=== PATIENT | male | born 1985 | race Caucasian/White ===

== ENCOUNTER 2016-07-21 03:04 | Emergency (ER) | payer OTHER ==
[2016-07-21 03:10] VITALS: RESP 18
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
[2016-07-21 03:55] VITALS: BP 160/95; PULSE 89; TEMP 97.8
== END 2016-07-21 03:55 | disposition home or self-care (01) ==
LOC: EC 03:04
DX: S01.81XA Laceration without foreign body of other part of head, initial encounter (principal); X99.0XXA Assault by sharp glass, initial encounter; I10 Essential (primary) hypertension; F17.200 Nicotine dependence, unspecified, uncomplicated
CPT/HCPCS: 12002; 99282

== ENCOUNTER 2017-09-07 00:08 | Emergency (ER) | payer OTHER ==
[2017-09-07] MEDS ORDERED: IBUPROFEN 800 MG TAB PO STA (00:15)
[2017-09-07] MEDS ORDERED: ACETAMINOPHEN TAB 500 MG TAB PO STA (00:15)
[2017-09-07] MEDS ORDERED: SODIUM CHLORIDE 0.9% 1,000 ML IV STA (00:56)
[2017-09-07] MEDS ORDERED: IBUPROFEN 600 MG TAB PO STA (00:56)
[2017-09-07 01:26] LABS: Basophils # (A) 0.1 k/uL (0-0.2); Basophils % (A) 1 %; Eosinophils # (A) 0.1 k/uL (0-0.7); Eosinophils % (A) 1 %; HCT 41.6 % (39.0-53.0); HGB 14.7 gm/dL (13.0-17.5); Lymphocytes # (A) 0.9 k/uL (1.0-4.8); Lymphocytes % (A) 7 %; MCH 30.2 pg (25.0-35.0); MCHC 35.3 g/dL (31.0-37.0); MCV 85.5 fL (80.0-100.0); Mean Platelet Volume 8.2; Monocytes # (A) 0.9 k/uL (0-1.0); Monocytes % (A) 7 %; Neutrophils % (A) 84 %; Platelet Count 206 k/uL (150-450); RBC 4.87 m/uL (4.30-5.90); RDW 12.4 % (11.5-15.5); WBC 13.2 k/uL (3.8-10.6)
[2017-09-07 01:30] LABS: Appearance,Urine Clear (Clear); Bilirubin,Urine Negative (Negative); Blood,Urine Negative (Negative); Color,Urine Colorless; Glucose,Urine (UA) Negative (Negative); Ketones,Urine Negative (Negative); Leukocyte Esterase,Urine Negative (Negative); Nitrite,Urine Negative (Negative); Protein,Urine Negative (Negative); Specific Gravity,Urine 1.003 (1.001-1.035); Urobilinogen,Urine <2.0 mg/dL (<2.0)
[2017-09-07 01:34] LABS: ALT 25 U/L (21-72); AST 26 U/L (17-59); Albumin 4.4 g/dL (3.5-5.0); Alkaline Phosphatase 69 U/L (38-126); Anion Gap 11 mmol/L; Blood Urea Nitrogen 12 mg/dL (9-20); Calcium 9.9 mg/dL (8.4-10.2); Carbon Dioxide 24 mmol/L (22-30); Chloride 105 mmol/L (98-107); Glucose 107 mg/dL (74-99); Potassium 3.6 mmol/L (3.5-5.1); Sodium 140 mmol/L (137-145); Total Bilirubin 0.5 mg/dL (0.2-1.3)
--- NOTE | 2017-09-07 01:34 | XR ---
EXAMINATION TYPE: XR chest 2V DATE OF EXAM: 09/07/2017 COMPARISON: NONE HISTORY: Fever TECHNIQUE: Frontal and lateral views of the chest are obtained. FINDINGS: Heart and mediastinum are normal. Lungs are clear. Diaphragm is normal. Bony thorax appear s normal. IMPRESSION: Normal chest
[2017-09-07 01:47] LABS: Amphetamine Screen,Urine Not Detected (NotDetected); Barbiturate Screen,Urine Not Detected (NotDetected); Benzodiazepines Screen,Urine Not Detected (NotDetected); Cocaine Screen,Urine Not Detected (NotDetected); Methadone Screen, Urine Not Detected (NotDetected); Opiate Screen,Urine Not Detected (NotDetected); Oxycodone Screen, Urine Not Detected (NotDetected); Phencyclidine Screen,Urine Not Detected (NotDetected); Tricyclic Antidepressant,Urine Not Detected (NotDetected); Urn Cannabinoid Scrn Not Detected (NotDetected)
[2017-09-07] MEDS ORDERED: SODIUM CHLORIDE 0.9% 1,000 ML IV SCH (02:00)
--- NOTE | 2017-09-07 02:13 | ED ---
Fever HPI - General Chief Complaint: Fever Stated Complaint: Muscle aches Time Seen by Provider: 09/07/17 00:15 Source: patient, EMS, RN notes reviewed, old records reviewed Mode of arrival: EMS Limitations: no limitations - History of Present Illness Initial Comments: This patient is a 32 year old male presents via EMS for body aches, fever, and fatigue. REports he was with his friend and walking to the Liquor store when he felt weak and that his legs would not carry him anymore. He states that from his head to his toes, he feels like someone is squeezing his muscles. Patient reports that he did not know he had a fever. He has no other complaints such as cough, sore throat, congestion, abdominal pain, nausea, vomiting or changes in bowel and bladder habits. PAtient relates that he has no history of sick contacts. Denies significant PMH. - Related Data Previous Rx's Medication Instructions Recorded Ibuprofen [Motrin] 800 mg PO Q6HR PRN #20 tab 07/21/16 Acetaminophen Tab [Tylenol Tab] 650 mg PO Q6H #20 tablet 09/07/17 Ibuprofen [Motrin] 600 mg PO Q8HR PRN #20 tab 09/07/17 Allergies Allergy/AdvReac Type Severity Reaction Status Date / Time No Known Allergies Allergy Verified 09/07/17 00:14 Review of Systems ROS Statement: Those systems with pertinent positive or pertinent negative responses have been documented in the HPI. ROS Other: All systems not noted in ROS Statement are negative. Past Medical History Past Medical History: Hyperlipidemia, Hypertension Additional Past Medical History / Comment(s): irregular heartbeat, DDD History of Any Multi-Drug Resistant Organisms: None Reported Past Surgical History: No Surgical Hx Reported Past Psychological History: No Psychological Hx Reported Smoking Status: Current every day smoker Past Alcohol Use History: None Reported Past Drug Use History: None Reported General Exam - General Exam Comments Initial Comments: This is a 32 year old alert and oriented male, no distress. Limitations: no limitations General appearance: alert, in no apparent distress Head exam: Present: atraumatic, normocephalic, normal inspection Eye exam: Present: normal appearance, PERRL, EOMI. Absent: scleral icterus, conjunctival injection, periorbital swelling ENT exam: Present: normal exam, mucous membranes moist Neck exam: Present: normal inspection. Absent: tenderness, meningismus, lymphadenopathy Respiratory exam: Present: normal lung sounds bilaterally. Absent: respiratory distress, wheezes, rales, rhonchi, stridor GI/Abdominal exam: Present: soft, normal bowel sounds. Absent: distended, tenderness, guarding, rebound, rigid Extremities exam: Present: normal inspection, full ROM, normal capillary refill. Absent: tenderness, pedal edema, joint swelling, calf tenderness Back exam: Present: normal inspection Neurological exam: Present: alert, oriented X3, CN II-XII intact Psychiatric exam: Present: normal affect, normal mood Course Vital Signs 09/07/17 09/07/17 09/07/17 00:10 02:25 02:36 Temperature 100.8 F H 99.5 F Pulse Rate 98 85 Respiratory 18 16 Rate Blood Pressure 161/94 146/87 O2 Sat by Pulse 96 97 Oximetry Medical Decision Making - Medical Decision Making Patient is a 32 year old male with fever and muscle aches for a few hours. He arrived via EMS. Patient has a fever of 100.8 given motrin and tylenol. Patient has a negative flu sceen. Patient then received fluids and labs obtained. Leukocytosis noted. No other changes. Normal CMP and UA. Patient CXR was reviewed and normal. Patient reports he feels better after fever has came down and he has been hydrated. Patient advised likely viral illness, and to follow up or return if there are any new signs or symptoms. All questions answered and return parameters discussed. - Lab Data Result diagrams: 09/07/17 01:08 09/07/17 01:08 Lab Results 09/07/17 09/07/17 09/07/17 Range/Units 00:17 01:08 01:08 WBC 13.2 H (3.8-10.6) k/uL RBC 4.87 (4.30-5.90) m/uL Hgb 14.7 (13.0-17.5) gm/dL Hct 41.6 (39.0-53.0) % MCV 85.5 (80.0-100.0) fL MCH 30.2 (25.0-35.0) pg MCHC 35.3 (31.0-37.0) g/dL RDW 12.4 (11.5-15.5) % Plt Count 206 (150-450) k/uL Neutrophils % 84 % Lymphocytes % 7 % Monocytes % 7 % Eosinophils % 1 % Basophils % 1 % Neutrophils # 11.0 H (1.3-7.7) k/uL Lymphocytes # 0.9 L (1.0-4.8) k/uL Monocytes # 0.9 (0-1.0) k/uL Eosinophils # 0.1 (0-0.7) k/uL Basophils # 0.1 (0-0.2) k/uL Sodium 140 (137-145) mmol/L Potassium 3.6 (3.5-5.1) mmol/L Chloride 105 (98-107) mmol/L Carbon Dioxide 24 (22-30) mmol/L Anion Gap 11 mmol/L BUN 12 (9-20) mg/dL Creatinine 1.00 (0.66-1.25) mg/dL Est GFR (CKD-EPI)AfAm >90 (>60 ml/min/1.73 sqM) Est GFR (CKD-EPI)NonAf >90 (>60 ml/min/1.73 sqM) Glucose 107 H (74-99) mg/dL Plasma Lactic Acid [place] (0.7-2.0) mmol/L Calcium 9.9 (8.4-10.2) mg/dL Total Bilirubin 0.5 (0.2-1.3) mg/dL AST 26 (17-59) U/L ALT 25 (21-72) U/L Alkaline Phosphatase 69 (38-126) U/L Total Protein 7.0 (6.3-8.2) g/dL Albumin 4.4 (3.5-5.0) g/dL Urine Color Urine Appearance (Clear) Urine pH (5.0-8.0) Ur Specific [place] (1.001-1.035) Urine Protein (Negative) Urine Glucose (UA) (Negative) Urine Ketones (Negative) Urine Blood (Negative) Urine Nitrite (Negative) Urine Bilirubin (Negative) Urine Urobilinogen (<2.0) mg/dL Ur Leukocyte Esterase (Negative) Urine Opiates Screen (NotDetected) Ur Oxycodone Screen (NotDetected) Urine Methadone Screen (NotDetected) Ur Propoxyphene Screen (NotDetected) Ur Barbiturates Screen (NotDetected) U Tricyclic Antidepress (NotDetected) Ur Phencyclidine Scrn (NotDetected) Ur Amphetamines Screen (NotDetected) U Methamphetamines Scrn (NotDetected) U Benzodiazepines Scrn (NotDetected) Urine Cocaine Screen (NotDetected) U Marijuana (THC) Screen (NotDetected) Heterophile Antibody (Negative) Influenza Type A RNA Not Detected (Not Detectd) Influenza Type B (PCR) Not Detected (Not Detectd) 09/07/17 09/07/17 09/07/17 Range/Units 01:08 01:08 01:08 WBC (3.8-10.6) k/uL RBC (4.30-5.90) m/uL Hgb (13.0-17.5) gm/dL Hct (39.0-53.0) % MCV (80.0-100.0) fL MCH (25.0-35.0) pg MCHC (31.0-37.0) g/dL RDW (11.5-15.5) % Plt Count (150-450) k/uL Neutrophils % % Lymphocytes % % Monocytes % % Eosinophils % % Basophils % % Neutrophils # (1.3-7.7) k/uL Lymphocytes # (1.0-4.8) k/uL Monocytes # (0-1.0) k/uL Eosinophils # (0-0.7) k/uL Basophils # (0-0.2) k/uL Sodium (137-145) mmol/L Potassium (3.5-5.1) mmol/L Chloride (98-107) mmol/L Carbon Dioxide (22-30) mmol/L Anion Gap mmol/L BUN (9-20) mg/dL Creatinine (0.66-1.25) mg/dL Est GFR (CKD-EPI)AfAm (>60 ml/min/1.73 sqM) Est GFR (CKD-EPI)NonAf (>60 ml/min/1.73 sqM) Glucose (74-99) mg/dL Plasma Lactic Acid [place] 0.6 L (0.7-2.0) mmol/L Calcium (8.4-10.2) mg/dL Total Bilirubin (0.2-1.3) mg/dL AST (17-59) U/L ALT (21-72) U/L Alkaline Phosphatase (38-126) U/L Total Protein (6.3-8.2) g/dL Albumin (3.5-5.0) g/dL Urine Color Colorless Urine Appearance Clear (Clear) Urine pH 7.0 (5.0-8.0) Ur Specific [place] 1.003 (1.001-1.035) Urine Protein Negative (Negative) Urine Glucose (UA) Negative (Negative) Urine Ketones Negative (Negative) Urine Blood Negative (Negative) Urine Nitrite Negative (Negative) Urine Bilirubin Negative (Negative) Urine Urobilinogen <2.0 (<2.0) mg/dL Ur Leukocyte Esterase Negative (Negative) Urine Opiates Screen (NotDetected) Ur Oxycodone Screen (NotDetected) Urine Methadone Screen (NotDetected) Ur Propoxyphene Screen (NotDetected) Ur Barbiturates Screen (NotDetected) U Tricyclic Antidepress (NotDetected) Ur Phencyclidine Scrn (NotDetected) Ur Amphetamines Screen (NotDetected) U Methamphetamines Scrn (NotDetected) U Benzodiazepines Scrn (NotDetected) Urine Cocaine Screen (NotDetected) U Marijuana (THC) Screen (NotDetected) Heterophile Antibody Negative (Negative) Influenza Type A RNA (Not Detectd) Influenza Type B (PCR) (Not Detectd) 09/07/17 Range/Units 01:08 WBC (3.8-10.6) k/uL RBC (4.30-5.90) m/uL Hgb (13.0-17.5) gm/dL Hct (39.0-53.0) % MCV (80.0-100.0) fL MCH (25.0-35.0) pg MCHC (31.0-37.0) g/dL RDW (11.5-15.5) % Plt Count (150-450) k/uL Neutrophils % % Lymphocytes % % Monocytes % % Eosinophils % % Basophils % % Neutrophils # (1.3-7.7) k/uL Lymphocytes # (1.0-4.8) k/uL Monocytes # (0-1.0) k/uL Eosinophils # (0-0.7) k/uL Basophils # (0-0.2) k/uL Sodium (137-145) mmol/L Potassium (3.5-5.1) mmol/L Chloride (98-107) mmol/L Carbon Dioxide (22-30) mmol/L Anion Gap mmol/L BUN (9-20) mg/dL Creatinine (0.66-1.25) mg/dL Est GFR (CKD-EPI)AfAm (>60 ml/min/1.73 sqM) Est GFR (CKD-EPI)NonAf (>60 ml/min/1.73 sqM) Glucose (74-99) mg/dL Plasma Lactic Acid [place] (0.7-2.0) mmol/L Calcium (8.4-10.2) mg/dL Total Bilirubin (0.2-1.3) mg/dL AST (17-59) U/L ALT (21-72) U/L Alkaline Phosphatase (38-126) U/L Total Protein (6.3-8.2) g/dL Albumin (3.5-5.0) g/dL Urine Color Urine Appearance (Clear) Urine pH (5.0-8.0) Ur Specific [place] (1.001-1.035) Urine Protein (Negative) Urine Glucose (UA) (Negative) Urine Ketones (Negative) Urine Blood (Negative) Urine Nitrite (Negative) Urine Bilirubin (Negative) Urine Urobilinogen (<2.0) mg/dL Ur Leukocyte Esterase (Negative) Urine Opiates Screen Not Detected (NotDetected) Ur Oxycodone Screen Not Detected (NotDetected) Urine Methadone Screen Not Detected (NotDetected) Ur Propoxyphene Screen Not Detected (NotDetected) Ur Barbiturates Screen Not Detected (NotDetected) U Tricyclic Antidepress Not Detected (NotDetected) Ur Phencyclidine Scrn Not Detected (NotDetected) Ur Amphetamines Screen Not Detected (NotDetected) U Methamphetamines Scrn Not Detected (NotDetected) U Benzodiazepines Scrn Not Detected (NotDetected) Urine Cocaine Screen Not Detected (NotDetected) U Marijuana (THC) Screen Not Detected (NotDetected) Heterophile Antibody (Negative) Influenza Type A RNA (Not Detectd) Influenza Type B (PCR) (Not Detectd) - Radiology Data Radiology results: report reviewed CXR was reviewed and normal. Disposition Clinical Impression: Viral syndrome, Body aches Disposition: HOME SELF-CARE Condition: Good Instructions: Fever in Adults (ED) Additional Instructions: Patient is alternate Motrin and Tylenol every 4 hours. Follow-up with primary care provider symptoms are continue to persist. Make sure remaining hydrated. Return to emergency department if any alarming signs or symptoms occur. Prescriptions: Acetaminophen Tab [Tylenol Tab] 650 mg PO Q6H #20 tablet Ibuprofen [Motrin] 600 mg PO Q8HR PRN #20 tab PRN Reason: Pain Referrals: Poly Patel MD [Primary Care Provider] - 1-2 days Time of Disposition: 02:13
[2017-09-07 02:26] VITALS: TEMP 99.5
[2017-09-07 02:37] VITALS: BP 146/87; PULSE 85; RESP 16
== END 2017-09-07 02:37 | disposition home or self-care (01) ==
LOC: EC 00:08
DX: B34.9 Viral infection, unspecified (principal); F17.200 Nicotine dependence, unspecified, uncomplicated
CPT/HCPCS: 36415; 71046; 80053; 80306; 81003; 83605; 85025; 86308; 87040; 87502; 96360; 96361; 99284

== ENCOUNTER 2023-10-22 16:11 | Emergency (ER) | payer OTHER ==
--- NOTE | 2023-10-22 16:40 | ED ---
General Adult HPI - General Source: patient, RN notes reviewed Mode of arrival: ambulatory Limitations: no limitations <Tonya Pichardo - Last Filed: 10/22/23 16:37> <Adelfo Varma - Last Filed: 10/22/23 20:41> - General Stated complaint: Hypertension Time Seen by Provider: 10/22/23 16:37 - History of Present Illness Initial comments: Quick note: 38 year old male presents to the emergency department for evaluation of high blood pressure. Patient states that he went to the clinic in attempt to get his blood pressure medication as he forgot it in [place]. He states that they sent him to the ED. He states that his blood pressure was 180 systolic at the clinic. He admits to slight frontal headache. Denies vision changes, chest pain. He takes lisinopril 10mg usually and a "water pill" that he cannot remember the name of. (Tonya Pichardo) Dictation was produced using [employer] dictation software. please excuse any gra mmatical, word or spelling errors. Chief Complaint: 38-year-old male past medical history of hypertension presents with migraine elevated blood pressure History of Present Illness: Patient is a 38-year-old male with to the urgent care with chief complaint of elevated blood pressure he did tell them that he has headache. Apparently his blood pressure urgent care was 180 systolic. He was told to come to the emergency department. Patient is a strong history of migraines. States that his headache feels like his usual migraines. No numbness tingling paresthesias to arms or legs. Patient denies that this is the worst headache of his life and that is thunderclap. Patient forgot his blood pressure medications in [place]. He would like to get his blood pressure medications refilled. The ROS documented in this emergency department record has been reviewed and confirmed by me. Those systems with pertinent positive or negative responses have been documented in the HPI. All other systems are other negative and/or noncontributory. (Adelfo Varma) - Related Data Previous Rx's Medication Instructions Recorded Ibuprofen [Motrin] 800 mg PO Q6HR PRN #20 tab 07/21/16 Acetaminophen Tab [Tylenol Tab] 650 mg PO Q6H #20 tablet 09/07/17 Ibuprofen [Motrin] 600 mg PO Q8HR PRN #20 tab 09/07/17 Lisinopril-Hctz 10-12.5 mg 1 tab PO DAILY 14 Days #14 tab 10/22/23 [Zestoretic 10-12.5] Allergies Allergy/AdvReac Type Severity Reaction Status Date / Time adhesive Allergy Rash/Hives Verified 10/22/23 16:40 Review of Systems ROS Other: All systems not noted in ROS Statement are negative. <Tonya Pichardo - Last Filed: 10/22/23 16:37> ROS Other: All systems not noted in ROS Statement are negative. <Adelfo Varma - Last Filed: 10/22/23 20:41> ROS Statement: Those systems with pertinent positive or pertinent negative responses have been documented in the HPI. Past Medical History Past Medical History: Hyperlipidemia, Hypertension Additional Past Medical History / Comment(s): irregular heartbeat, DDD History of Any Multi-Drug Resistant Organisms: None Reported Past Surgical History: No Surgical Hx Reported Past Psychological History: No Psychological Hx Reported Past Alcohol Use History: None Reported Past Drug Use History: None Reported <Tonya Pichardo - Last Filed: 10/22/23 16:37> General Exam <Tonya Pichardo - Last Filed: 10/22/23 16:37> <Adelfo Varma - Last Filed: 10/22/23 20:41> - General Exam Comments Initial Comments: Visual Physical Exam Vital signs reviewed General: Well-appearing, nontoxic, no acute distress. Head: Normocephalic, atraumatic Eyes: PERRLA, EOMI ENT: Airway patent Chest: Nonlabored breathing Skin: No visual rash, normal skin tone Neuro: Alert and oriented 3 Musculoskeletal: No gross abnormalities (Tonya Pichardo) PHYSICAL EXAM: General Impression: Alert and oriented x3, not in acute distress HEENT: Normocephalic atraumatic, extra-ocular movements intact, pupils equal and reactive to light bilaterally, mucous membranes moist. Cardiovascular: Heart regular rate and rhythm Chest: Able to complete full sentences, no retractions, no tachypnea Abdomen: abdomen soft, non-tender, non-distended, no organomegaly Musculoskeletal: Pulses present and equal in all extremities, no peripheral edema Motor: no focal deficits noted Neurological: CN II-XII grossly intact, no focal motor or sensory deficits noted Skin: Intact with no visualized rashes Psych: Normal affect and mood (Adelfo Varma) Course Vital Signs 10/22/23 10/22/23 10/22/23 16:31 19:05 19:45 Temperature 97.9 F 97.7 F Pulse Rate 71 62 63 Respiratory 18 16 17 Rate Blood Pressure 240/143 231/137 235/135 O2 Sat by Pulse 99 100 100 Oximetry Medical Decision Making <Tonya Pichardo - Last Filed: 10/22/23 16:37> - Lab Data Result diagrams: 10/22/23 18:10 10/22/23 18:10 <Adelfo aVrma - Last Filed: 10/22/23 20:41> - Medical Decision Making Quick note preformed and electronically signed by Tonya Pichardo PA-C (Tonya Pichardo) Was pt. sent in by a medical professional or institution (TARIK Farris, MANAGER PROGRESSIVE CARE, urgent care, hospital, or fci...) When possible be specific @ -Urgent care Did you speak to anyone other than the patient for history (EMS, parent, family, police, friend...)? What history was obtained from this source @ -No Did you review nursing and triage notes (agree or disagree)? Why? @ -I reviewed and agree with nursing and triage notes Were old charts reviewed (outside hosp., previous admission, EMS record, old EKG, old radiological studies, urgent care reports/EKG's, fci records)? Report findings @ -No old charts were reviewed Differential Diagnosis (chest pain, altered mental status, abdominal pain women, abdominal pain men, vaginal bleeding, musculoskeletal, weakness, fever, dyspnea, syncope, headache, dizziness, GI bleed, back pain, seizure, CVA, palpatations, mental health)? @ -Differential Headache: Migraine, tension, cluster, carbon monoxide, central venous thrombosis, pension karma temporal arteritis, acute closure glaucoma, intercranial hemorrhage, mastoiditis, sinusitis, head injury, this is not meant to be an all-inclusive list. EKG interpreted by me (3pts min.). @ -None done X-rays interpreted by me (1pt min.). @ -None done CT interpreted by me (1pt min.). @ -None done U/S interpreted by me (1pt. min.). @ -None done What testing was considered but not performed or refused? (CT, X-rays, U/S, labs)? Why? @ -None What meds were considered but not given or refused? Why? @ -None Did you discuss the management of the patient with other professionals (professionals i.e. Dr., PA, MANAGER PROGRESSIVE CARE, lab, RT, psych nurse, social service director, dining service worker, teacher, vice squad police officer, director of casework department)? Give summary @ -No Was smoking cessation discussed for >3mins.? @ -No Was critical care preformed (if so, how long)? @ -No Were there social determinants of health that impacted care today? How? (Homelessness, low income, unemployed, alcoholism, drug addiction, transportation, low edu. Level, literacy, decrease access to med. care, senior living, rehab)? @ -No Was there de-escalation of care discussed even if they declined (Discuss DNR or withdrawal of care, Hospice)? DNR status @ -No What co-morbidities impacted this encounter? (DM, HTN, Smoking, COPD, CAD, Cancer, CVA, ARF, Chemo, Hep., AIDS, mental health diagnosis, sleep apnea, morbid obesity)? @ -None Was patient admitted / discharged? Hospital course, mention meds given and route, prescriptions, significant lab abnormalities, going to OR and other pertinent info. @ -38-year-old male presents emergency department with hypertension and headache. Patient has extensive history of headache states that his headache feels like his usual headache. Vital signs upon arrival shows blood pressure of 244/143. Patient given headache cocktail. Labs unremarkable. Patient was monitored in emergency department. Is recommended to patient to try to improve his blood pressure with medications given that is significantly high. Patient did not want to wait any longer and wanted to be discharged. Patient has close follow-up with primary care doctor. Patient has appointment coming up next week. Patient given refill on his lisinopril/hydrochlorothiazide. patient sig susi out AGAINST MEDICAL ADVICE. Undiagnosed new problem with uncertain prognosis? @ -No Drug Therapy requiring intensive monitoring for toxicity (Heparin, Nitro, Insulin, Cardizem)? @ -No Were any procedures done? @ -No Diagnosis/symptom? Acute, or Chronic, or Acute on Chronic? Uncomplicated (w ithout systemic symptoms) or Complicated (systemic symptoms)? @ -Hypertension Side effects of treatment? @ -No Exacerbation, Progression, or Severe Exacerbation? @ -No Poses a threat to life or bodily function? How? (Chest pain, [place], [place], pneumonia, PE, COPD, DKA, ARF, appy, cholecystitis, CVA, Diverticulitis, Homicidal, Suicidal, threat to staff... and all critical care pts) @ -yes (Adelfo Varma) - Lab Data Lab Results 10/22/23 10/22/23 Range/Units 18:10 18:10 WBC 9.6 (3.8-10.6) k/uL RBC 5.49 (4.30-5.90) m/uL Hgb 16.3 (13.0-17.5) gm/dL Hct 49.6 (39.0-53.0) % MCV 90.2 (80.0-100.0) fL MCH 29.7 (25.0-35.0) pg MCHC 32.9 (31.0-37.0) g/dL RDW 12.6 (11.5-15.5) % Plt Count 250 (150-450) k/uL MPV 9.0 Neutrophils % 57 % Lymphocytes % 30 % Monocytes % 7 % Eosinophils % 3 % Basophils % 2 % Neutrophils # 5.5 (1.3-7.7) k/uL Lymphocytes # 2.8 (1.0-4.8) k/uL Monocytes # 0.7 (0-1.0) k/uL Eosinophils # 0.3 (0-0.7) k/uL Basophils # 0.2 (0-0.2) k/uL Sodium 141 (137-145) mmol/L Potassium 4.8 (3.5-5.1) mmol/L Chloride 108 H (98-107) mmol/L Carbon Dioxide 27 (22-30) mmol/L Anion Gap 6 mmol/L BUN 14 (9-20) mg/dL Creatinine 1.16 (0.66-1.25) mg/dL Est GFR (CKD-EPI)AfAm >90 (>60 ml/min/1.73 sqM) Est GFR (CKD-EPI)NonAf 81 (>60 ml/min/1.73 sqM) Glucose 83 (74-99) mg/dL Calcium 9.8 (8.4-10.2) mg/dL Total Bilirubin 0.8 (0.2-1.3) mg/dL AST 32 (17-59) U/L ALT 27 (4-49) U/L Alkaline Phosphatase 74 (38-126) U/L Total Protein 8.1 (6.3-8.2) g/dL Albumin 4.9 (3.5-5.0) g/dL Disposition <Tonya Pichardo - Last Filed: 10/22/23 16:37> Is patient prescribed a controlled substance at d/c from ED?: No Time of Disposition: 20:24 <Adelfo Varma - Last Filed: 10/22/23 20:41> Clinical Impression: Hypertension Disposition: LEFT AGAINST MEDICAL ADVICE Condition: Fair Instructions (If sedation given, give patient instructions): Acute Headache (ED) Prescriptions: Lisinopril-Hctz 10-12.5 mg [Zestoretic 10-12.5] 1 tab PO DAILY 14 Days #14 tab Referrals: Poly Patel MD [Primary Care Provider] - 1-2 days
--- NOTE | 2023-10-22 17:38 | XR ---
EXAMINATION TYPE: XR chest 2V DATE OF EXAM: 10/22/2023 COMPARISON: 09/07/2017 HISTORY: 38-year-old male hypertension and headache TECHNIQUE: PA and lateral views FINDINGS: Heart upper limits of normal in size. Otherwise, aorta and pulmonary vasculature are within normal li mits. Lungs and pleural spaces are clear. IMPRESSION: Heart upper limits of normal in size. Otherwise, no acute cardiopulmonary process.
[2023-10-22 18:34] LABS: Basophils # (A) 0.2 k/uL (0-0.2); Basophils % (A) 2 %; Eosinophils # (A) 0.3 k/uL (0-0.7); Eosinophils % (A) 3 %; HCT 49.6 % (39.0-53.0); HGB 16.3 gm/dL (13.0-17.5); Lymphocytes # (A) 2.8 k/uL (1.0-4.8); Lymphocytes % (A) 30 %; MCH 29.7 pg (25.0-35.0); MCHC 32.9 g/dL (31.0-37.0); MCV 90.2 fL (80.0-100.0); Monocytes # (A) 0.7 k/uL (0-1.0); Monocytes % (A) 7 %; Neutrophils # (A) 5.5 k/uL (1.3-7.7); Neutrophils % (A) 57 %; Platelet Count 250 k/uL (150-450); RBC 5.49 m/uL (4.30-5.90); RDW 12.6 % (11.5-15.5); WBC 9.6 k/uL (3.8-10.6)
[2023-10-22 18:37] LABS: ALT 27 U/L (4-49); African American GFR (CKD) >90 (>60 ml/min/1.73 sqM); Albumin 4.9 g/dL (3.5-5.0); Anion Gap 6 mmol/L; Blood Urea Nitrogen 14 mg/dL (9-20); Calcium 9.8 mg/dL (8.4-10.2); Carbon Dioxide 27 mmol/L (22-30); Chloride 108 mmol/L (98-107); Glucose 83 mg/dL (74-99); Non-African American GFR(CKD) 81 (>60 ml/min/1.73 sqM); Sodium 141 mmol/L (137-145); Total Bilirubin 0.8 mg/dL (0.2-1.3); Total Protein 8.1 g/dL (6.3-8.2)
[2023-10-22 18:39] LABS: AST 32 U/L (17-59); Potassium 4.8 mmol/L (3.5-5.1)
[2023-10-22 18:40] LABS: Alkaline Phosphatase 74 U/L (38-126)
[2023-10-22] MEDS: SODIUM CHLORIDE 0.9% 1,000 ML IV STA (18:43)
[2023-10-22] MEDS: KETOROLAC 15 MG/ML 1 ML VIAL IVP STA (18:44)
[2023-10-22] MEDS: diphenhydrAMINE 50 MG/ML 1 ML VIAL IVP STA (18:44)
[2023-10-22] MEDS: ONDANSETRON 4 MG/2 ML VIAL IVP STA (18:44)
[2023-10-22 19:48] VITALS: BP 235/135; PULSE 63; RESP 17; TEMP 97.7
[2023-10-22] MEDS: lisinopriL 10 MG TAB PO STA (20:22)
== END 2023-10-22 20:38 | disposition left against medical advice (07) ==
LOC: EC 16:11
DX: I10 Essential (primary) hypertension (principal); Z53.29 Procedure and treatment not carried out because of patient's decision for other reasons
CPT/HCPCS: 99284; 96374; 96375 ×2; 96361; 36415; 80053; 85025; 71046; J1200; J2405; J1885

== ENCOUNTER 2024-03-01 11:26 | Emergency (ER) | payer OTHER ==
--- NOTE | 2024-03-01 12:09 | ED ---
Dizziness HPI - General Chief Complaint: Dizziness Stated Complaint: Dizziness Time Seen by Provider: 03/01/24 12:00 Source: patient, RN notes reviewed Mode of arrival: ambulatory Limitations: no limitations - History of Present Illness Initial Comments: This is a 38-year-old male who presents to the emergency department for dizziness and lightheadedness. States that it started this morning. He has a history of hypertension and states that when his blood pressure is elevated it usually makes him feel like this. Denies any headaches. Currently taking lisinopril, but does not believe that the dose is high enough. He did take it this morning. Denies any headaches, chest pain, or shortness of breath. MD Complaint: dizziness, lightheadedness - Related Data Previous Rx's Medication Instructions Recorded Ibuprofen [Motrin] 800 mg PO Q6HR PRN #20 tab 07/21/16 Acetaminophen Tab [Tylenol Tab] 650 mg PO Q6H #20 tablet 09/07/17 Ibuprofen [Motrin] 600 mg PO Q8HR PRN #20 tab 09/07/17 Lisinopril-Hctz 10-12.5 mg 1 tab PO DAILY 14 Days #14 tab 10/22/23 [Zestoretic 10-12.5] lisinopriL [Prinivil] 20 mg PO DAILY #30 tablet 03/01/24 Allergies Allergy/AdvReac Type Severity Reaction Status Date / Time adhesive Allergy Rash/Hives Verified 03/01/24 11:31 Review of Systems ROS Statement: Those systems with pertinent positive or pertinent negative responses have been documented in the HPI. ROS Other: All systems not noted in ROS Statement are negative. Past Medical History Past Medical History: Hyperlipidemia, Hypertension Additional Past Medical History / Comment(s): irregular heartbeat, DDD History of Any Multi-Drug Resistant Organisms: None Reported Past Surgical History: No Surgical Hx Reported Past Psychological History: No Psychological Hx Reported Smoking Status: Current every day smoker Past Alcohol Use History: Occasional Past Drug Use History: None Reported General Exam - General Exam Comments Initial Comments: Visual Physical Exam Vital signs reviewed General: Well-appearing, nontoxic, no acute distress. Head: Normocephalic, atraumatic Eyes: PERRLA, EOMI ENT: Airway patent Chest: Nonlabored breathing Skin: No visual rash, normal skin tone Neuro: Alert and oriented 3 Musculoskeletal: No gross abnormalities Limitations: no limitations General appearance: alert, in no apparent distress Head exam: Present: atraumatic, normocephalic, normal inspection Eye exam: Present: normal appearance, PERRL, EOMI. Absent: scleral icterus, conjunctival injection, periorbital swelling Respiratory exam: Present: normal lung sounds bilaterally. Absent: respiratory distress, wheezes, rales, rhonchi, stridor Cardiovascular Exam: Present: regular rate, normal rhythm, normal heart sounds. Absent: systolic murmur, diastolic murmur, rubs, gallop, clicks Neurological exam: Present: alert, oriented X3, CN II-XII intact Psychiatric exam: Present: normal affect, normal mood Skin exam: Present: warm, dry, intact, normal color. Absent: rash Course Vital Signs 03/01/24 03/01/24 03/01/24 11:29 12:44 13:22 Temperature 98.1 F 98.6 F 98 F Pulse Rate 74 65 60 Respiratory 18 18 16 Rate Blood Pressure 193/127 184/112 172/124 O2 Sat by Pulse 99 99 100 Oximetry 03/01/24 03/01/24 13:59 14:09 Temperature 98 F Pulse Rate 63 Respiratory 18 Rate Blood Pressure 182/120 182/120 O2 Sat by Pulse 98 Oximetry Medical Decision Making - Medical Decision Making I performed the QuickNote portion of this chart. Signed Piedad Mays PA-C. Was pt. sent in by a medical professional or institution? @ -No Did you speak to anyone other than the patient for history? @ -No Did you review nursing and triage notes? @ -Yes, and I agree, it is accurate with regards to the patient's symptoms. Were old charts reviewed? @ -No Differential Diagnosis? @ -Differential Dizziness: Benign paroxysmal positional Vertigo, Meniere's disease, otitis media, acoustic neuroma, vertebrobasilar insufficiency, cerebellar stroke, encephalitis, hypovolemic, arrhythmia, coronary artery syndrome, anemia, this is not meant to be an all-inclusive list EKG interpreted by me (3pts min.)? @ -EKG interpreted by me demonstrating the following: Sinus rhythm. Ventricula r rate 65 bpm, ME interval 142 ms, QRS duration 86 ms, QTc 396 ms. X-rays interpreted by me (1pt min.)? @ -Not obtained CT interpreted by me (1pt min.)? @ -Not obtained U/S interpreted by me (1pt. min.)? @ -Not obtained What testing was considered but not performed? (CT, X-rays, U/S, labs)? Why? @ -None What meds were considered but not given? Why? @ -None Did you discuss the management of the patient with other professionals? @ -No Did you reconcile home meds? @ -No Was smoking cessation discussed for >3mins.? @ -No Was critical care preformed (if so, how long)? @ -No Were there social determinants of health that impacted care today? How? (Home lessness, low income, unemployed, alcoholism, drug addiction, transportation, low edu. Level, literacy, decrease access to med. care, residential, rehab)? @ -No Was there de-escalation of care discussed even if they declined? (Discuss DNR or withdrawal of care, Hospice)? @ -No What co-morbidities impacted this encounter? (DM, HTN, Smoking, COPD, CAD, Ca ncer, CVA, Hep., AIDS, mental health diagnosis, sleep apnea, morbid obesity)? @ -HTN Was patient admitted / discharged? @ -Discharged. Lab work unremarkable. BP was 193/127 on arrival. BP did start to slowly improve as did his symptoms. 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 Believes that he is only on 10 mg of lisinopril. Advised that this could be increased to 20 mg if his pressure is consistently this high. He does need a refill on his medication. This was sent in as 20 mg. Advised he continue to check his blood pressure at home and take the increased dose if it remains this high. Otherwise he can split it in half and go back down to the 10mg. Patient discharged home in stable condition. Advised close follow-up with his PCP. Case discussed with ED attending, Dr. Sampson. Return precautions reviewed in depth, the patient is instructed to return to the emergency department with any new, worsening, or concerning symptoms. Patient verbalized understanding. Undiagnosed new problem with uncertain prognosis? @ -None Drug Therapy requiring intensive monitoring for toxicity (Heparin, Nitro, Insulin, Cardizem)? @ -None Were any procedures done? @ -None Diagnosis/symptom? @ -Dizziness Acute, or Chronic, or Acute on Chronic? @ -Acute Uncomplicated (without systemic symptoms) or Complicated (systemic symptoms)? @ -Uncomplicated Side effects of treatment? @ -None Exacerbation, Progression, or Severe Exacerbation] @ -Not applicable Poses a threat to life or bodily function? @ -No - Lab Data Result diagrams: 03/01/24 12:09 03/01/24 12:09 Lab Results 03/01/24 03/01/24 Range/Units 12: 12:09 WBC 7.4 (3.8-10.6) k/uL RBC 5.02 (4.30-5.90) m/uL Hgb 14.9 (13.0-17.5) gm/dL Hct 45.1 (39.0-53.0) % MCV 89.8 (80.0-100.0) fL MCH 29.7 (25.0-35.0) pg MCHC 33.1 (31.0-37.0) g/dL RDW 12.7 (11.5-15.5) % Plt Count 250 (150-450) k/uL MPV 9.1 Neutrophils % 61 % Lymphocytes % 27 % Monocytes % 7 % Eosinophils % 2 % Basophils % 2 % Neutrophils # 4.6 (1.3-7.7) k/uL Lymphocytes # 2.0 (1.0-4.8) k/uL Monocytes # 0.5 (0-1.0) k/uL Eosinophils # 0.2 (0-0.7) k/uL Basophils # 0.1 (0-0.2) k/uL Sodium 142 (137-145) mmol/L Potassium 4.0 (3.5-5.1) mmol/L Chloride 108 H (98-107) mmol/L Carbon Dioxide 28 (22-30) mmol/L Anion Gap 6 mmol/L BUN 10 (9-20) mg/dL Creatinine 1.27 H (0.66-1.25) mg/dL Est GFR (CKD-EPI)AfAm 83 (>60 ml/min/1.73 sqM) Est GFR (CKD-EPI)NonAf 72 (>60 ml/min/1.73 sqM) Glucose 83 (74-99) mg/dL Calcium 9.9 (8.4-10.2) mg/dL Total Bilirubin 0.7 (0.2-1.3) mg/dL AST 24 (17-59) U/L ALT 17 (4-49) U/L Alkaline Phosphatase 57 (38-126) U/L Total Protein 7.4 (6.3-8.2) g/dL Albumin 4.7 (3.5-5.0) g/dL Disposition Clinical Impression: Dizziness, Hypertension Disposition: HOME SELF-CARE Instructions (If sedation given, give patient instructions): Hypertension (ED), Dizziness (ED) Additional Instructions: Return to the emergency department with any new, worsening, or concerning symp toms. Begin taking the new lisinopril prescription of 20 mg. Check your blood pressure at home several times each day and keep a log of these values. Follow up with your primary care provider in 1-2 days. Prescriptions: lisinopriL [Prinivil] 20 mg PO DAILY #30 tablet Is patient prescribed a controlled substance at d/c from ED?: No Referrals: Poly Patel MD [Primary Care Provider] - 1-2 days Time of Disposition: 14:00
[2024-03-01 13:15] LABS: Basophils # (A) 0.1 k/uL (0-0.2); Basophils % (A) 2 %; Eosinophils # (A) 0.2 k/uL (0-0.7); Eosinophils % (A) 2 %; HCT 45.1 % (39.0-53.0); HGB 14.9 gm/dL (13.0-17.5); Lymphocytes % (A) 27 %; MCH 29.7 pg (25.0-35.0); MCHC 33.1 g/dL (31.0-37.0); MCV 89.8 fL (80.0-100.0); Mean Platelet Volume 9.1; Monocytes # (A) 0.5 k/uL (0-1.0); Monocytes % (A) 7 %; Neutrophils # (A) 4.6 k/uL (1.3-7.7); Neutrophils % (A) 61 %; Platelet Count 250 k/uL (150-450); RBC 5.02 m/uL (4.30-5.90); RDW 12.7 % (11.5-15.5); WBC 7.4 k/uL (3.8-10.6)
[2024-03-01 13:24] LABS: ALT 17 U/L (4-49); AST 24 U/L (17-59); African American GFR (CKD) 83 (>60 ml/min/1.73 sqM); Albumin 4.7 g/dL (3.5-5.0); Alkaline Phosphatase 57 U/L (38-126); Anion Gap 6 mmol/L; Blood Urea Nitrogen 10 mg/dL (9-20); Calcium 9.9 mg/dL (8.4-10.2); Carbon Dioxide 28 mmol/L (22-30); Chloride 108 mmol/L (98-107); Glucose 83 mg/dL (74-99); Non-African American GFR(CKD) 72 (>60 ml/min/1.73 sqM); Sodium 142 mmol/L (137-145); Total Bilirubin 0.7 mg/dL (0.2-1.3); Total Protein 7.4 g/dL (6.3-8.2)
[2024-03-01] MEDS: lisinopriL 20 MG TAB PO STA (13:24)
[2024-03-01 13:28] VITALS: TEMP 98
[2024-03-01 14:00] VITALS: BP 182/120
[2024-03-01 14:11] VITALS: PULSE 63; RESP 18
== END 2024-03-01 14:13 | disposition home or self-care (01) ==
LOC: EC 11:26
CPT/HCPCS: 36415; 80053; 85025; 93005; 99284

== ENCOUNTER 2024-04-08 20:45 | Emergency (ER) | payer OTHER ==
[2024-04-08 20:51] VITALS: TEMP 97.9
[2024-04-08] MEDS: KETOROLAC 15 MG/ML 1 ML VIAL IVP STA ×2 (21:28→23:01)
[2024-04-08] MEDS: ONDANSETRON 4 MG/2 ML VIAL IVP STA (21:29)
[2024-04-08] MEDS: MORPHINE SULFATE 4 MG/ML SYRINGE IVP STA (21:31)
[2024-04-08] MEDS: ORPHENADRINE 30 MG/ML 2 ML VIAL IVP STA (21:31)
--- NOTE | 2024-04-08 21:34 | ED ---
Headache HPI - General Chief Complaint: Headache Stated Complaint: Neck Pain, NV, Headache Time Seen by Provider: 04/08/24 20:53 Source: patient, RN notes reviewed Mode of arrival: ambulatory Limitations: no limitations - History of Present Illness Initial Comments: This is a 38-year-old male who presents to the emergency department for headaches, neck pain, and nausea. Patient states that he has a problem with C3- C4 in his cervical spine and it occasionally causes pain to flareup. Usually his is able to help massage it out, however this time they could not get the pain to resolve on its own. States that it shoots up into his head and makes him vomit. Denies any injuries. States this feels like the same pain he has had in the past. He does not want any imaging or testing done, states that he just wants to get help with the pain. Blood pressure noted to be elevated on arrival. Currently on lisinopril 20 mg daily. States that his blood pressure is usually in the 140s systolically at home. Believes it is only elevated due to his pain. MD Complaint: headache - Related Data Previous Rx's Medication Instructions Recorded Ibuprofen [Motrin] 800 mg PO Q6HR PRN #20 tab 07/21/16 Acetaminophen Tab [Tylenol Tab] 650 mg PO Q6H #20 tablet 09/07/17 Ibuprofen [Motrin] 600 mg PO Q8HR PRN #20 tab 09/07/17 Lisinopril-Hctz 10-12.5 mg 1 tab PO DAILY 14 Days #14 tab 10/22/23 [Zestoretic 10-12.5] lisinopriL [Prinivil] 20 mg PO DAILY #30 tablet 03/01/24 Ketorolac [Toradol] 10 mg PO Q6HR PRN #15 tab 04/09/24 Ondansetron Odt [Zofran Odt] 4 mg PO Q8HR PRN #15 tab 04/09/24 methocarbamoL [Robaxin-750] 1,500 mg PO TID PRN #30 tab 04/09/24 Allergies Allergy/AdvReac Type Severity Reaction Status Date / Time adhesive Allergy Rash/Hives Verified 04/08/24 20:51 Review of Systems ROS Statement: Those systems with pertinent positive or pertinent negative responses have been documented in the HPI. ROS Other: All systems not noted in ROS Statement are negative. Past Medical History Past Medical History: Hyperlipidemia, Hypertension Additional Past Medical History / Comment(s): irregular heartbeat, DDD History of Any Multi-Drug Resistant Organisms: None Reported Past Surgical History: No Surgical Hx Reported Past Psychological History: No Psychological Hx Reported Smoking Status: Current every day smoker Past Alcohol Use History: Occasional Past Drug Use History: None Reported General Exam Limitations: no limitations General appearance: alert, in no apparent distress Head exam: Present: atraumatic, normocephalic, normal inspection Eye exam: Present: normal appearance, PERRL, EOMI. Absent: scleral icterus, c onjunctival injection, periorbital swelling Neck exam: Present: full ROM, other (Tenderness to palpation over the right side of the cervical spine) Respiratory exam: Present: normal lung sounds bilaterally. Absent: respiratory distress, wheezes, rales, rhonchi, stridor Cardiovascular Exam: Present: regular rate, normal rhythm, normal heart sounds. Absent: systolic murmur, diastolic murmur, rubs, gallop, clicks Neurological exam: Present: alert, oriented X3, CN II-XII intact Psychiatric exam: Present: normal affect, normal mood Skin exam: Present: warm, dry, intact, normal color. Absent: rash Course Vital Signs 04/08/24 04/08/24 04/08/24 20:47 21:32 21:42 Temperature 97.9 F Pulse Rate 80 86 Respiratory 22 Rate Blood Pressure 210/124 225/112 199/156 O2 Sat by Pulse 97 Oximetry 04/08/24 04/08/24 04/08/24 22:34 23:17 23:28 Temperature Pulse Rate 86 66 64 Respiratory 18 18 18 Rate Blood Pressure 200/124 197/133 195/122 O2 Sat by Pulse 99 98 98 Oximetry 04/08/24 04/08/24 04/09/24 23:30 23:46 00:09 Temperature Pulse Rate 58 L 59 L 59 L Respiratory 20 18 16 Rate Blood Pressure 195/122 182/121 152/102 O2 Sat by Pulse 97 98 98 Oximetry 04/09/24 04/09/24 00:30 01:37 Temperature Pulse Rate 72 75 Respiratory 16 18 Rate Blood Pressure 172/118 156/98 O2 Sat by Pulse 98 98 Oximetry Medical Decision Making - Medical Decision Making This is a 38 year old male who presents to the emergency department for neck pain and headaches. Was pt. sent in by a medical professional or institution? @ -No Did you speak to anyone other than the patient for history? @ -No Did you review nursing and triage notes? @ -Yes, and I agree, it is accurate with regards to the patient's symptoms. Were old charts reviewed? @ -No Differential Diagnosis? @ -Differential Neck Pain: Fracture, dislocation, contusion, strain, DDD, disc herniation, this is not meant to be an all-inclusive list. EKG interpreted by me (3pts min.)? @ -EKG interpreted by me demonstrating the following: Sinus rhythm. Ventricular rate 60 bpm, MA interval 120 ms, QRS duration 90 ms, QTc 414 ms. X-rays interpreted by me (1pt min.)? @ -Not obtained CT interpreted by me (1pt min.)? @ -CT scan of the brain obtained. My interpretation identifies no evidence of acute intracranial hemorrhage. CTA of the head and neck obtained. My interpretation identifies no evidence of an aneurysm. U/S interpreted by me (1pt. min.)? @ -Not obtained What testing was considered but not performed? (CT, X-rays, U/S, labs)? Why? @ -None What meds were considered but not given? Why? @ -None Did you discuss the management of the patient with other professionals? @ -No Did you reconcile home meds? @ -No Was smoking cessation discussed for >3mins.? @ -I discussed smoking cessation for greater than 3 minutes. The risk of smoking were discussed with the patient including but not limited to risks of cancer, stroke, coronary artery disease and COPD. Also discussed with patient were multiple methods of quitting smoking. Lastly we discussed the financial cost of smoking. Was critical care preformed (if so, how long)? @ -No Were there social determinants of health that impacted care today? How? (Homelessness, low income, unemployed, alcoholism, drug addiction, transpo rtation, low edu. Level, literacy, decrease access to med. care, senior living, rehab)? @ -No Was there de-escalation of care discussed even if they declined? (Discuss DNR or withdrawal of care, Hospice)? @ -No What co-morbidities impacted this encounter? (DM, HTN, Smoking, COPD, CAD, Cancer, CVA, Hep., AIDS, mental health diagnosis, sleep apnea, morbid obesity)? @ -HTN, HLD, smoking Was patient admitted / discharged? @ -Discharged. On arrival patient's blood pressure was markedly elevated in the 200s systolically. Given his symptoms, I advised imaging and lab work. However, patient states that this is the same pain he always gets and declined any sort of workup. Medication was administered to help with his symptoms and he did find relief afterwards. However, blood pressure continued to remain elevated. He was then agreeable to more of a workup. We proceeded with a CT scan of the brain and CTA of the head and neck along with lab work and an EKG. Lab work demonstrates hyperkalemia with a potassium of 5.6, however this is hemolyzed. Lab work otherwise unremarkable. CT scan of brain and CTA of the head and neck revealed no acute process. Pain overall well-controlled in the emergency department. BP improved to 156/98 at the point of discharge. Prescription for Toradol, Robaxin, and Zofran provided for any additional pain or nausea. Patient discharged home in stable condition. Case discussed with ED attending Dr. Sampson. Return precautions reviewed in depth, the patient is instructed to return to the emergency department with any new, worsening, or concerning symptoms. Patient verbalized understanding. Undiagnosed new problem with uncertain prognosis? @ -None Drug Therapy requiring intensive monitoring for toxicity (Heparin, Nitro, Ins ulin, Cardizem)? @ -None Were any procedures done? @ -None Diagnosis/symptom? @ -Headache, neck pain Acute, or Chronic, or Acute on Chronic? @ -Acute Uncomplicated (without systemic symptoms) or Complicated (systemic symptoms)? @ -Uncomplicated Side effects of treatment? @ -None Exacerbation, Progression, or Severe Exacerbation] @ -Not applicable Poses a threat to life or bodily function? @ -No - Lab Data Result diagrams: 04/08/24 22:59 04/08/24 22:59 Lab Results 04/08/24 04/08/24 04/08/24 Range/Units 22:59 22:59 22:59 WBC 9.7 (3.8-10.6) k/uL RBC 4.76 (4.30-5.90) m/uL Hgb 13.8 (13.0-17.5) gm/dL Hct 42.2 (39.0-53.0) % MCV 88.6 (80.0-100.0) fL MCH 29.1 (25.0-35.0) pg MCHC 32.8 (31.0-37.0) g/dL RDW 12.7 (11.5-15.5) % Plt Count 214 (150-450) k/uL MPV 8.6 Neutrophils % 60 % Lymphocytes % 30 % Monocytes % 6 % Eosinophils % 2 % Basophils % 1 % Neutrophils # 5.8 (1.3-7.7) k/uL Lymphocytes # 2.9 (1.0-4.8) k/uL Monocytes # 0.5 (0-1.0) k/uL Eosinophils # 0.2 (0-0.7) k/uL Basophils # 0.1 (0-0.2) k/uL PT 10.6 (10.0-12.5) sec INR 1.0 (<1.2) APTT 25.6 (22.0-30.0) sec Sodium 137 (137-145) mmol/L Potassium 5.6 H (3.5-5.1) mmol/L Chloride 109 H (98-107) mmol/L Carbon Dioxide 25 (22-30) mmol/L Anion Gap 3 mmol/L BUN 21 H (9-20) mg/dL Creatinine 1.16 (0.66-1.25) mg/dL Est GFR (CKD-EPI)AfAm >90 (>60 ml/min/1.73 sqM) Est GFR (CKD-EPI)NonAf 81 (>60 ml/min/1.73 sqM) Glucose 82 (74-99) mg/dL Calcium 9.1 (8.4-10.2) mg/dL Magnesium 2.0 (1.6-2.3) mg/dL Total Bilirubin 1.2 (0.2-1.3) mg/dL AST 35 (17-59) U/L ALT 20 (4-49) U/L Alkaline Phosphatase 33 L (38-126) U/L Troponin I (0.000-0.034) ng/mL Total Protein 6.8 (6.3-8.2) g/dL Albumin 4.1 (3.5-5.0) g/dL 04/08/24 Range/Units 22:59 WBC (3.8-10.6) k/uL RBC (4.30-5.90) m/uL Hgb (13.0-17.5) gm/dL Hct (39.0-53.0) % MCV (80.0-100.0) fL MCH (25.0-35.0) pg MCHC (31.0-37.0) g/dL RDW (11.5-15.5) % Plt Count (150-450) k/uL MPV Neutrophils % % Lymphocytes % % Monocytes % % Eosinophils % % Basophils % % Neutrophils # (1.3-7.7) k/uL Lymphocytes # (1.0-4.8) k/uL Monocytes # (0-1.0) k/uL Eosinophils # (0-0.7) k/uL Basophils # (0-0.2) k/uL PT (10.0-12.5) sec INR (<1.2) APTT (22.0-30.0) sec Sodium (137-145) mmol/L Potassium (3.5-5.1) mmol/L Chloride (98-107) mmol/L Carbon Dioxide (22-30) mmol/L Anion Gap mmol/L BUN (9-20) mg/dL Creatinine (0.66-1.25) mg/dL Est GFR (CKD-EPI)AfAm (>60 ml/min/1.73 sqM) Est GFR (CKD-EPI)NonAf (>60 ml/min/1.73 sqM) Glucose (74-99) mg/dL Calcium (8.4-10.2) mg/dL Magnesium (1.6-2.3) mg/dL Total Bilirubin (0.2-1.3) mg/dL AST (17-59) U/L ALT (4-49) U/L Alkaline Phosphatase (38-126) U/L Troponin I <0.012 (0.000-0.034) ng/mL Total Protein (6.3-8.2) g/dL Albumin (3.5-5.0) g/dL - Radiology Data Radiology results: report reviewed, image reviewed Disposition Clinical Impression: Neck pain, Headache, Nicotine dependence Disposition: HOME SELF-CARE Instructions (If sedation given, give patient instructions): Acute Headache (ED), Neck Pain (ED) Additional Instructions: Return to the emergency department with any new, worsening, or concerning symptoms. Take the Toradol with Tylenol as needed for pain relief. If you choose to take the Toradol, do not take any other anti-inflammatories such as ibuprofen, take one or the other. Take the Robaxin as 1 to 2 tablets up to 3-4 times daily. You can take the Zofran up to every 8 hours as needed for nausea and vomiting. Follow up with your primary care provider in 1-2 days. Prescriptions: methocarbamoL [Robaxin-750] 1,500 mg PO TID PRN #30 tab PRN Reason: Pain Ketorolac [Toradol] 10 mg PO Q6HR PRN #15 tab PRN Reason: Pain Ondansetron Odt [Zofran Odt] 4 mg PO Q8HR PRN #15 tab PRN Reason: Nausea And Vomiting Is patient prescribed a controlled substance at d/c from ED?: No Referrals: Poly Patel MD [Primary Care Provider] - 1-2 days Time of Disposition: 13:05
[2024-04-08 23:10] LABS: Basophils # (A) 0.1 k/uL (0-0.2); Basophils % (A) 1 %; Eosinophils # (A) 0.2 k/uL (0-0.7); Eosinophils % (A) 2 %; HCT 42.2 % (39.0-53.0); HGB 13.8 gm/dL (13.0-17.5); Lymphocytes # (A) 2.9 k/uL (1.0-4.8); Lymphocytes % (A) 30 %; MCH 29.1 pg (25.0-35.0); MCHC 32.8 g/dL (31.0-37.0); MCV 88.6 fL (80.0-100.0); Mean Platelet Volume 8.6; Monocytes # (A) 0.5 k/uL (0-1.0); Monocytes % (A) 6 %; Neutrophils # (A) 5.8 k/uL (1.3-7.7); Neutrophils % (A) 60 %; Platelet Count 214 k/uL (150-450); RBC 4.76 m/uL (4.30-5.90); RDW 12.7 % (11.5-15.5); WBC 9.7 k/uL (3.8-10.6)
[2024-04-08 23:19] LABS: ALT 20 U/L (4-49); AST 35 U/L (17-59); African American GFR (CKD) >90 (>60 ml/min/1.73 sqM); Albumin 4.1 g/dL (3.5-5.0); Alkaline Phosphatase 33 U/L (38-126); Anion Gap 3 mmol/L; Blood Urea Nitrogen 21 mg/dL (9-20); Calcium 9.1 mg/dL (8.4-10.2); Carbon Dioxide 25 mmol/L (22-30); Chloride 109 mmol/L (98-107); Glucose 82 mg/dL (74-99); Non-African American GFR(CKD) 81 (>60 ml/min/1.73 sqM); Sodium 137 mmol/L (137-145); Total Bilirubin 1.2 mg/dL (0.2-1.3); Total Protein 6.8 g/dL (6.3-8.2)
[2024-04-08] MEDS: LABETALOL 5 MG/ML VIAL MDV IVP STA (23:20)
[2024-04-08 23:41] LABS: Partial Thromboplastin Time 25.6 sec (22.0-30.0); Prothrombin Time 10.6 sec (10.0-12.5)
[2024-04-08 23:51] LABS: Potassium 5.6 mmol/L (3.5-5.1)
--- NOTE | 2024-04-09 00:02 | CT ---
EXAM: CT Head Without Intravenous Contrast CLINICAL HISTORY: ITS.REASON CT Reason: Headache TECHNIQUE: Axial computed tomography images of the head/brain without intravenous contrast. CTDI is 48.8 mGy and DLP is 1099 mGy-cm. This CT exam was performed using one or more of the following dose reduction techniques: automated exposure control, adjustment of the mA and/or kV according to patient size, and/or use of iterative reconstruction technique. COMPARISON: No relevant prior studies available. FINDINGS: Brain: The territorial telles-white matter differentiation is maintained throughout. No acute intracranial hemorrhage. No midline shift or mass effect. Ventricles: The ventricles and sulci are commensurate with age. Bones/joints: Unremarkable. No acute fracture. Soft tissues: Unremarkable. Sinuses: Mucus retention cyst in the RIGHT maxillary sinus. Mastoid air cells: Unremarkable as visualized. No mastoid effusion. IMPRESSION: No acute intracranial hemorrhage. No midline shift or mass effect.
[2024-04-09] MEDS: hydrALAZINE HCL 20 MG/ML 1 ML VIAL IVP STA (00:59)
--- NOTE | 2024-04-09 01:01 | CT ---
EXAM: CT Angiography Head With Intravenous Contrast CLINICAL HISTORY: ITS.REASON CT Reason: Headache, neck pain, N/V TECHNIQUE: Axial computed tomographic angiography images of the head with intravenous contrast. CTDI is 22 mGy and DLP is 262.95 mGy-cm. This CT exam was performed using one or more of the following dose reduction techniques: automated exposure control, adjustment of the mA and/or kV according to patient size, and/or use of iterative reconstruction technique. MIP reconstructed images were created and reviewed. COMPARISON: No relevant prior studies available. FINDINGS: Intracranial venous sinuses are patent. Right internal carotid artery: No acute findings. Intracranial segment is patent with no significant stenosis. No aneurysm. Right anterior cerebral artery: Unremarkable. No occlusion or significant stenosis. No aneurysm. Right middle cerebral artery: Unremarkable. No occlusion or significant stenosis. No aneurysm. Right posterior cerebral artery: Unremarkable. No occlusion or significant stenosis. No aneurysm. Right vertebral artery: Unremarkable as visualized. Left internal carotid artery: No acute findings. Intracranial segment is patent with no significant stenosis. No aneurysm. Left anterior cerebral artery: Unremarkable. No occlusion or significant stenosis. No aneurysm. Left middle cerebral artery: Unremarkable. No occlusion or significant stenosis. No aneurysm. Left posterior cerebral artery: Unremarkable. No occlusion or significant stenosis. No aneurysm. Left vertebral artery: Unremarkable as visualized. Basilar artery: Unremarkable. No occlusion or significant stenosis. No aneurysm. IMPRESSION: Negative CT angiogram of the head. EXAM: CT Angiography Neck With Intravenous Contrast CLINICAL HISTORY: ITS.REASON CT Reason: Headache, neck pain, N/V TECHNIQUE: Routine carotid CT angiography protocol was performed with intravenous contrast. NASCET criteria using the distal ICAs for comparison were used for evaluation of stenoses. CTDI is 22 mGy and DLP is 262.95 mGy-cm. This CT exam was performed using one or more of the following dose reduction techniques: automated exposure control, adjustment of the mA and/or kV according to patient size, and/or use of iterative reconstruction technique. MIP reconstructed images were created and reviewed. COMPARISON: None. FINDINGS: VASCULATURE: Right common carotid artery: Unremarkable. No occlusion or significant stenosis. No dissection. Right internal carotid artery: Unremarkable. Extracranial segment is patent with no occlusion or significant stenosis. No dissection. Right external carotid artery: Unremarkable. No occlusion. Right vertebral artery: Unremarkable. No occlusion or significant stenosis. No dissection. Left common carotid artery: Unremarkable. No occlusion or significant stenosis. No dissection. Left internal carotid artery: Unremarkable. Extracranial segment is patent with no occlusion or significant stenosis. No dissection. Left external carotid artery: Unremarkable. No occlusion. Left vertebral artery: Unremarkable. No occlusion or significant stenosis. No dissection. NECK: Bones/joints: There is a critical spinal canal stenosis at C4-5. Recommend MRI of the cervical spine to evaluate for myelopathy. No acute fracture. Dental caries with periapical lucency about tooth #31 and concerning for periapical abscess. Recommend dental consult. Soft tissues: Unremarkable. Lung apices: Clear. CAROTID STENOSIS REFERENCE USING NASCET CRITERIA: % ICA stenosis = (1 - narrowest ICA diameter/diameter of distal cervical ICA) x 100. Mild - <50% stenosis. Moderate - 50-69% stenosis. Severe - 70-94% stenosis. Near occlusion - 95-99% stenosis. Occluded - 100% stenosis. IMPRESSION: Negative CTA neck. Critical spinal canal stenosis at C4-5. Recommend MRI of the cervical spine to evaluate for myelopathy.
[2024-04-09 01:39] VITALS: BP 156/98; PULSE 75; RESP 18
== END 2024-04-09 01:55 | disposition home or self-care (01) ==
LOC: EC 20:45
DX: M54.2 Cervicalgia (principal); R51.9 Headache, unspecified; I10 Essential (primary) hypertension; E78.5 Hyperlipidemia, unspecified; F17.200 Nicotine dependence, unspecified, uncomplicated
CPT/HCPCS: 99285; 99406; 96374; 96375 ×5; 96376; 36415; 93005; 80053; 83735; 84484; 85025; 85610; 85730; 70496; 70450; 70498; J2270; J0360; J2360; J2405; J1885; Q9967; J1920

== ENCOUNTER 2024-06-25 12:11 | Emergency (ER) | payer OTHER ==
--- NOTE | 2024-06-25 13:05 | ED ---
General Adult HPI - General Chief complaint: Dizziness Stated complaint: dizzy abd pain Time Seen by Provider: 06/25/24 12:53 Source: patient, RN notes reviewed Mode of arrival: ambulatory Limitations: no limitations - History of Present Illness Initial comments: Patient is a 39-year-old male present to the emergency department with concerns for blood in his stool. Patient has been having some lightheadedness and epigastric discomfort for a few days. Patient felt a little bit shaky this morning. Patient has had some nausea, no vomiting. Patient states after a bowel movement this morning he did notice blood in the toilet paper when wiping. No blood in the toilet. No history of alcohol or NSAID use, no blood thinners. No history of similar symptoms previously. Patient has been off his lisinopril secondary to difficulty with his insurance and primary care physician - Related Data Previous Rx's Medication Instructions Recorded Ibuprofen [Motrin] 800 mg PO Q6HR PRN #20 tab 07/21/16 Acetaminophen Tab [Tylenol Tab] 650 mg PO Q6H #20 tablet 09/07/17 Ibuprofen [Motrin] 600 mg PO Q8HR PRN #20 tab 09/07/17 Lisinopril-Hctz 10-12.5 mg 1 tab PO DAILY 14 Days #14 tab 10/22/23 [Zestoretic 10-12.5] lisinopriL [Prinivil] 20 mg PO DAILY #30 tablet 03/01/24 Ketorolac [Toradol] 10 mg PO Q6HR PRN #15 tab 04/09/24 Ondansetron Odt [Zofran Odt] 4 mg PO Q8HR PRN #15 tab 04/09/24 methocarbamoL [Robaxin-750] 1,500 mg PO TID PRN #30 tab 04/09/24 lisinopriL [Zestril] 20 mg PO DAILY #10 tab 06/25/24 Allergies Allergy/AdvReac Type Severity Reaction Status Date / Time adhesive Allergy Rash/Hives Verified 06/25/24 12:37 Review of Systems ROS Statement: Those systems with pertinent positive or pertinent negative responses have been documented in the HPI. ROS Other: All systems not noted in ROS Statement are negative. Constitutional: Denies: fever Eyes: Denies: eye pain ENT: Denies: ear pain Respiratory: Denies: cough Cardiovascular: Denies: chest pain Endocrine: Denies: fatigue Gastrointestinal: Reports: as per HPI, abdominal pain. Denies: vomiting Genitourinary: Denies: dysuria Musculoskeletal: Denies: back pain Past Medical History Past Medical History: Hyperlipidemia, Hypertension Additional Past Medical History / Comment(s): irregular heartbeat, DDD History of Any Multi-Drug Resistant Organisms: None Reported Past Surgical History: No Surgical Hx Reported Past Psychological History: No Psychological Hx Reported Smoking Status: Current every day smoker Past Alcohol Use History: None Reported, Occasional Past Drug Use History: None Reported General Exam Limitations: no limitations General appearance: alert, in no apparent distress Head exam: Present: normocephalic Eye exam: Present: normal appearance, PERRL, EOMI Neck exam: Present: normal inspection Respiratory exam: Present: normal lung sounds bilaterally Cardiovascular Exam: Present: regular rate, normal rhythm Expanded Peripheral pulses: 2+: Posterior Tibialis (R), Posterior Tibialis (L) GI/Abdominal exam: Present: soft, tenderness (Mild tenderness epigastric and right lower), normal bowel sounds. Absent: distended, guarding, rebound, rigid, pulsatile mass Extremities exam: Present: normal inspection Neurological exam: Present: alert Psychiatric exam: Present: normal affect, normal mood Skin exam: Present: normal color Course Vital Signs 06/25/24 06/25/24 06/25/24 12:38 13:00 13:52 Temperature 97.9 F 98.3 F Pulse Rate 83 76 85 Respiratory 18 16 16 Rate Blood Pressure 219/129 192/127 192/129 O2 Sat by Pulse 97 98 97 Oximetry 06/25/24 06/25/24 06/25/24 14:25 14:53 15:08 Temperature Pulse Rate 80 77 80 Respiratory 16 14 16 Rate Blood Pressure 213/132 209/115 199/124 O2 Sat by Pulse 97 99 98 Oximetry EKG Findings - EKG Results: EKG: interpreted by JUVENAL ([facility]), sinus rhythm, normal axis, normal ST/T Medical Decision Making - Medical Decision Making Was pt. sent in by a medical professional or institution (, PA, ASSISTANT OFFSET PRESS OPERATOR, urgent care, hospital, or penitentiary...) When possible be specific @ -No Did you speak to anyone other than the patient for history (EMS, parent, family, police, friend...)? What history was obtained from this source @ -No Did you review nursing and triage notes (agree or disagree)? Why? @ -I reviewed and agree with nursing and triage notes Were old charts reviewed (outside hosp., previous admission, EMS record, old EKG, old radiological studies, urgent care reports/EKG's, penitentiary records)? Report findings @ -No old charts were reviewed Differential Diagnosis (chest pain, altered mental status, abdominal pain women, abdominal pain men, vaginal bleeding, weakness, fever, dyspnea, syncope, headache, dizziness, GI bleed, back pain, seizure, CVA, palpatations, mental health, musculoskeletal)? @ -Differential Abdominal Pain Men: Appendicitis, cholecystitis, diverticulosis, ischemic bowel, pancreatitis, hepatitis, UTI, gastroenteritis, AAA, incarcerated hernia, bowel obstruction, constipation, inflammatory bowel, hepatitis, peptic ulcer disease, splenic infarction, perforated viscus, testicular torsion, this is not meant to be an al l-inclusive list EKG interpreted by me (3pts min.). @ -As above X-rays interpreted by me (1pt min.). @ -None done CT interpreted by me (1pt min.). @ -CT scan of abdomen pelvis without acute abnormality U/S interpreted by me (1pt. min.). @ -None done What testing was considered but not performed or refused? (CT, X-rays, U/S, labs)? Why? @ -None What meds were considered but not given or refused? Why? @ -None Did you discuss the management of the patient with other professionals (professionals i.e. , PA, ASSISTANT OFFSET PRESS OPERATOR, lab, RT, psych nurse, social services technician, legal clerk, teacher, science and operations officer, pillowcase folder)? Give summary @ -No Was smoking cessation discussed for >3mins.? @ -No Was critical care preformed (if so, how long)? @ -No Were there social determinants of health that impacted care today? How? (Homelessness, low income, unemployed, alcoholism, drug addiction, transportation, low edu. Level, literacy, decrease access to med. care, long term, rehab)? @ -No Was there de-escalation of care discussed even if they declined (Discuss DNR or withdrawal of care, Hospice)? DNR status @ -Patient reevaluated and feeling much better. However patient remains hypersensitive despite medication. Patient advised for admission for further treatment for blood pressure however refuses. Patient states he will try to see his doctor on Wednesday. Patient does demonstrate medical decision making is made aware of potential complications of uncontrolled blood pressure. Despite this patient will not stay and will leave AGAINST MEDICAL ADVICE What co-morbidities impacted this encounter? (DM, HTN, Smoking, COPD, CAD, Cancer, CVA, ARF, Chemo, Hep., AIDS, mental health diagnosis, sleep apnea, morbid obesity)? @ -History of untreated hypertension Was patient admitted / discharged? Hospital course, mention meds given and route, prescriptions, significant lab abnormalities, going to OR and other pertinent info. @ -Patient presents with abdominal discomfort and questionable lower GI bleeding episode. No blood on exam, Hemoccult negative. CT scan workup unremarkable except hypertensive. Patient given 2 doses of medication and still hypertensive. Patient advised admission however refuses secondary to his son being at home unsupervised. Undiagnosed new problem with uncertain prognosis? @ -No Drug Therapy requiring intensive monitoring for toxicity (Heparin, Nitro, Insulin, Cardizem)? @ -No Were any procedures done? @ -No Diagnosis/symptom? @ -Abdominal pain, hypertension Acute, or Chronic, or Acute on Chronic? @ -Acute, acute Uncomplicated (without systemic symptoms) or Complicated (systemic symptoms)? @ -Default Side effects of treatment? @ -No Exacerbation, Progression, or Severe Exacerbation? @ -No Poses a threat to life or bodily function? How? (Chest pain, USA, [place], pneumonia, PE, COPD, DKA, ARF, appy, cholecystitis, CVA, Diverticulitis, Homicidal, Suicidal, threat to staff... and all critical care pts) @ -No - Lab Data Result diagrams: 06/25/24 13:22 06/25/24 13:22 Lab Results 06/25/24 06/25/24 06/25/24 Range/Units 13:22 13:22 13:22 WBC 10.7 H (3.8-10.6) k/uL RBC 4.56 (4.30-5.90) m/uL Hgb 13.7 (13.0-17.5) gm/dL Hct 40.6 (39.0-53.0) % MCV 89.1 (80.0-100.0) fL MCH 30.1 (25.0-35.0) pg MCHC 33.7 (31.0-37.0) g/dL RDW 12.6 (11.5-15.5) % Plt Count 244 (150-450) k/uL MPV 8.8 Neutrophils % 76 % Lymphocytes % 16 % Monocytes % 6 % Eosinophils % 0 % Basophils % 1 % Neutrophils # 8.2 H (1.3-7.7) k/uL Lymphocytes # 1.7 (1.0-4.8) k/uL Monocytes # 0.7 (0-1.0) k/uL Eosinophils # 0.0 (0-0.7) k/uL Basophils # 0.1 (0-0.2) k/uL PT 11.5 (10.0-12.5) sec INR 1.0 (<1.2) APTT 24.5 (22.0-30.0) sec Sodium (137-145) mmol/L Potassium (3.5-5.1) mmol/L Chloride (98-107) mmol/L Carbon Dioxide (22-30) mmol/L Anion Gap mmol/L BUN (9-20) mg/dL Creatinine (0.66-1.25) mg/dL Est GFR (CKD-EPI)AfAm (>60 ml/min/1.73 sqM) Est GFR (CKD-EPI)NonAf (>60 ml/min/1.73 sqM) Glucose (74-99) mg/dL Calcium (8.4-10.2) mg/dL Magnesium (1.6-2.3) mg/dL Total Bilirubin (0.2-1.3) mg/dL AST (17-59) U/L ALT (4-49) U/L Alkaline Phosphatase (38-126) U/L Total Protein (6.3-8.2) g/dL Albumin (3.5-5.0) g/dL Lipase (23-300) U/L Stool Occult Blood Negative (Negative) 06/25/24 Range/Units 13:22 WBC (3.8-10.6) k/uL RBC (4.30-5.90) m/uL Hgb (13.0-17.5) gm/dL Hct (39.0-53.0) % MCV (80.0-100.0) fL MCH (25.0-35.0) pg MCHC (31.0-37.0) g/dL RDW (11.5-15.5) % Plt Count (150-450) k/uL MPV Neutrophils % % Lymphocytes % % Monocytes % % Eosinophils % % Basophils % % Neutrophils # (1.3-7.7) k/uL Lymphocytes # (1.0-4.8) k/uL Monocytes # (0-1.0) k/uL Eosinophils # (0-0.7) k/uL Basophils # (0-0.2) k/uL PT (10.0-12.5) sec INR (<1.2) APTT (22.0-30.0) sec Sodium 143 (137-145) mmol/L Potassium 3.3 L (3.5-5.1) mmol/L Chloride 108 H (98-107) mmol/L Carbon Dioxide 26 (22-30) mmol/L Anion Gap 9 mmol/L BUN 15 (9-20) mg/dL Creatinine 1.17 (0.66-1.25) mg/dL Est GFR (CKD-EPI)AfAm >90 (>60 ml/min/1.73 sqM) Est GFR (CKD-EPI)NonAf 79 (>60 ml/min/1.73 sqM) Glucose 91 (74-99) mg/dL Calcium 9.6 (8.4-10.2) mg/dL Magnesium 2.1 (1.6-2.3) mg/dL Total Bilirubin 0.7 (0.2-1.3) mg/dL AST 24 (17-59) U/L ALT 21 (4-49) U/L Alkaline Phosphatase 61 (38-126) U/L Total Protein 6.7 (6.3-8.2) g/dL Albumin 4.6 (3.5-5.0) g/dL Lipase 46 (23-300) U/L Stool Occult Blood (Negative) Disposition Clinical Impression: Hypertension, Abdominal pain Disposition: LEFT AGAINST MEDICAL ADVICE Instructions (If sedation given, give patient instructions): Abdominal Pain (ED), Hypertension (ED) Additional Instructions: Prescription sent to pharmacy. Please follow-up with your doctor Wednesday as planned. Return for increased pain, uncontrolled blood pressure, bleeding, worsening symptoms or any other concerns. It is advised that you be kept in the hospital for further evaluation and treatment however you did not want to do t his. You are leaving AGAINST MEDICAL ADVICE Prescriptions: lisinopriL [Zestril] 20 mg PO DAILY #10 tab Is patient prescribed a controlled substance at d/c from ED?: No Referrals: Poly Patel MD [Primary Care Provider] - 1-2 days Time of Disposition: 16:12
[2024-06-25 13:29] LABS: Basophils # (A) 0.1 k/uL (0-0.2); Basophils % (A) 1 %; Eosinophils % (A) 0 %; HCT 40.6 % (39.0-53.0); HGB 13.7 gm/dL (13.0-17.5); Lymphocytes # (A) 1.7 k/uL (1.0-4.8); Lymphocytes % (A) 16 %; MCH 30.1 pg (25.0-35.0); MCHC 33.7 g/dL (31.0-37.0); MCV 89.1 fL (80.0-100.0); Mean Platelet Volume 8.8; Monocytes # (A) 0.7 k/uL (0-1.0); Monocytes % (A) 6 %; Neutrophils # (A) 8.2 k/uL (1.3-7.7); Neutrophils % (A) 76 %; Platelet Count 244 k/uL (150-450); RBC 4.56 m/uL (4.30-5.90); RDW 12.6 % (11.5-15.5); WBC 10.7 k/uL (3.8-10.6)
[2024-06-25 13:37] LABS: Prothrombin Time 11.5 sec (10.0-12.5)
[2024-06-25 13:38] LABS: Partial Thromboplastin Time 24.5 sec (22.0-30.0)
[2024-06-25] MEDS: ONDANSETRON 4 MG/2 ML VIAL IVP STA (13:40)
[2024-06-25] MEDS: ENALAPRILAT 1.25 MG/ML 1 ML VIAL IVP STA ×2 (13:40→15:04)
[2024-06-25] MEDS: PANTOPRAZOLE 40 MG/10 ML VIAL IVP STA (13:41)
[2024-06-25] MEDS: HYDROmorphone 0.5 MG/0.5 ML SYRINGE IVP STA (13:41)
[2024-06-25] MEDS: SODIUM CHLORIDE 0.9% 1,000 ML IV STA (13:42)
[2024-06-25 13:56] LABS: ALT 21 U/L (4-49); AST 24 U/L (17-59); African American GFR (CKD) >90 (>60 ml/min/1.73 sqM); Albumin 4.6 g/dL (3.5-5.0); Alkaline Phosphatase 61 U/L (38-126); Anion Gap 9 mmol/L; Blood Urea Nitrogen 15 mg/dL (9-20); Calcium 9.6 mg/dL (8.4-10.2); Carbon Dioxide 26 mmol/L (22-30); Chloride 108 mmol/L (98-107); Glucose 91 mg/dL (74-99); Lipase 46 U/L (23-300); Magnesium 2.1 mg/dL (1.6-2.3); Non-African American GFR(CKD) 79 (>60 ml/min/1.73 sqM); Potassium 3.3 mmol/L (3.5-5.1); Sodium 143 mmol/L (137-145); Total Bilirubin 0.7 mg/dL (0.2-1.3); Total Protein 6.7 g/dL (6.3-8.2)
--- NOTE | 2024-06-25 14:46 | CT ---
EXAMINATION TYPE: CT abdomen pelvis w con DATE OF EXAM: 06/25/2024 2:39 PM COMPARISON: None. CLINICAL INDICATION: Male, 39 years old with history of pain; high blood pressure, dizziness, blood i n stool x 2 days TECHNIQUE: Axial CT abdomen pelvis w con;Sagittal and coronal reformats were created on a separate w orkstation. Contrast used:100 mL of Isovue 300 with IV Contrast, (none if empty) Oral contrast used: without Oral Contrast (none if empty) CT DLP: 579.3 mGycm, Automated exposure control for dose reduction was used. FINDINGS: LOWER CHEST: Unremarkable ABDOMEN LIVER: Unremarkable GALLBLADDER AND BILE DUCTS: Unremarkable. PANCREAS: Unremarkable. SPLEEN: Unremarkable. ADRENAL GLANDS: Unremarkable. KIDNEYS AND URETERS: No evidence of hydronephrosis or renal calculus. The ureters are unremarkable. PELVIS BLADDER: No evidence for wall thickening or mass given limitations of exam. REPRODUCTIVE: Unremarkable. ABDOMEN & PELVIS STOMACH AND BOWEL: No evidence of bowel obstruction. PERITONEUM/RETROPERITONEUM: No evidence of pneumoperitoneum or free fluid. VASCULATURE: No evidence of aortic aneurysm. MUSCULOSKELETAL: No acute osseous abnormalities LYMPH NODES: No gross evidence for lymphadenopathy. SOFT TISSUE/ABDOMINAL WALL: Unremarkable IMPRESSION: No evidence for acute abdominal process on this nongastrointestinal hemorrhage protocol exam. [facility], , 06/25/2024 2:43 PM
[2024-06-25] MEDS: SODIUM CHLORIDE 0.9% 500 ML 500 ML IV STA (14:55)
--- NOTE | 2024-06-25 14:59 | XR ---
EXAMINATION TYPE: XR chest 2V DATE OF EXAM: 06/25/2024 2:44 PM COMPARISON: Chest radiographs from 10/22/2023 CLINICAL INDICATION: Male, 39 years old with history of htn; [facility] TECHNIQUE: XR chest 2V Frontal and lateral views of the chest. FINDINGS: Lungs/Pleura: There is no evidence of pleural effusion, focal consolidation, or pneumothorax. Pulmonary vascularity: Unremarkable. Heart/mediastinum: Cardiomediastinal silhouette is unremarkable. Musculoskeletal: No acute osseous pathology. IMPRESSION: No acute cardiopulmonary disease/process. [facility], , 06/25/2024 2:57 PM
[2024-06-25 15:09] VITALS: RESP 16
[2024-06-25 16:30] VITALS: BP 188/136; PULSE 81; TEMP 98.6
[2024-06-25] MEDS: amLODIPine 5 MG TAB PO STA (16:30)
== END 2024-06-25 16:58 | disposition left against medical advice (07) ==
LOC: EC 12:11
DX: I10 Essential (primary) hypertension (principal); R10.13 Epigastric pain; F17.200 Nicotine dependence, unspecified, uncomplicated; Z91.048 Other nonmedicinal substance allergy status
CPT/HCPCS: 36415; 93005; 80053; 83690; 83735; 85025; 85610; 85730; 82272; 71046; 74177; 99285; 96374; 96375; 96376; 96361; J2405; J1171; Q9967; J2470

== ENCOUNTER → 2024-10-05 | Outpatient (CLI) | payer OTHER ==
--- NOTE | 2024-10-07 12:15 | MR ---
EXAMINATION TYPE: MR cervical spine wo con DATE OF EXAM: 10/05/2024 9:57 PM COMPARISON: None. CLINICAL INDICATION: Male, 39 years old with history of M48.02, Severe neck pain and numbness in hand s and fingers TECHNIQUE: Multiplanar multiecho imaging on a 3.0 Tamara magnet is performed through the cervical spin e. IV Contrast: mL (None, if empty) FINDINGS: The craniovertebral junction is normal. Vertebral body alignment is normal. C7-T1: No focal disc herniation or significant disc bulge is evident. No spinal canal stenosis or n eural foraminal stenosis is present. C6-7: No focal disc herniation or significant disc bulge is evident. No spinal canal stenosis or camilla ral foraminal stenosis is present. C5-6: Mild degenerative disc changes are present. Residual disc bulge has mild anterior thecal sac co mpression without cord contact. No AP spinal canal stenosis is present. Neural foramen appear patent. There is narrowing of disc height. C4-5: There is a large broad-based disc herniation extending superiorly of the L4-5 level this has mo derate to severe anterior thecal sac compression. Cord contact and cord flattening is present. AP spi nal canal stenosis is present measuring 0.6 cm sagittal plane. C3-4: Minimal disc bulge is present with anterior thecal sac contact. No AP spinal canal stenosis is present. No cord contact is evident. Normal foramen are patent. C2-3: No focal disc herniation or significant disc bulge is evident. No spinal canal stenosis or camilla ral foraminal stenosis is present. IMPRESSION: 1. Large broad disc herniation C4-5 with significant anterior thecal sac compression with AP spinal c anal stenosis measuring 0.6 cm. Cord deformity is present. 2. Mild disc bulging present C3-4 and C5-6 without stenosis or cord contact [facility], , 10/07/2024 12:13 PM
== END | disposition home or self-care (01) ==
LOC: RADMRIMAIN 21:45
PROVIDERS: ATTEND Family Medicine
DX: M48.02 Spinal stenosis, cervical region (principal); M50.322 Other cervical disc degeneration at C5-C6 level
CPT/HCPCS: 72141

== ENCOUNTER 2024-12-02 11:55 | Emergency (ER) | payer BC, OTHER ==
[2024-12-02 12:07] VITALS: TEMP 98.4
[2024-12-02] MEDS ORDERED: DEXAMETHASONE SOD PHOSPHATE 10 MG/ML 1 ML VIAL IM STA (12:32)
[2024-12-02] MEDS: MORPHINE SULFATE 4 MG/ML SYRINGE IM STA (12:36)
[2024-12-02] MEDS: KETOROLAC 15 MG/ML 1 ML VIAL IM STA (12:36)
--- NOTE | 2024-12-02 12:45 | ED ---
Neck Injury/Pain HPI - General Chief Complaint: Neck Pain/Injury Stated Complaint: Neck pain Time Seen by Provider: 12/02/24 12:39 Source: patient, family, RN notes reviewed Mode of arrival: ambulatory Limitations: no limitations - History of Present Illness Initial Comments: 39-year-old male presenting for acute on chronic neck pain. Describes a sharp, shooting pain from the base of the neck into the head and down both arms. Denies recent injury or trauma. States he has been dealing with this pain for over a year and had recent MRI of the C-spine on October 10 which revealed large disc herniation of C4-5. States he has a follow-up appointment with orthopedics this Wednesday. States he is having a flareup of pain despite taking his ibuprofen and steroids at home. States he needs a work note because he was not able to go to work today due to the pain. - Related Data Previous Rx's Medication Instructions Recorded Ibuprofen [Motrin] 800 mg PO Q6HR PRN #20 tab 07/21/16 Acetaminophen Tab [Tylenol Tab] 650 mg PO Q6H #20 tablet 09/07/17 Ibuprofen [Motrin] 600 mg PO Q8HR PRN #20 tab 09/07/17 Lisinopril-Hctz 10-12.5 mg 1 tab PO DAILY 14 Days #14 tab 10/22/23 [Zestoretic 10-12.5] lisinopriL [Prinivil] 20 mg PO DAILY #30 tablet 03/01/24 Ketorolac [Toradol] 10 mg PO Q6HR PRN #15 tab 04/09/24 Ondansetron Odt [Zofran Odt] 4 mg PO Q8HR PRN #15 tab 04/09/24 methocarbamoL [Robaxin-750] 1,500 mg PO TID PRN #30 tab 04/09/24 lisinopriL [Zestril] 20 mg PO DAILY #10 tab 06/25/24 Allergies Allergy/AdvReac Type Severity Reaction Status Date / Time adhesive Allergy Rash/Hives Verified 12/02/24 12:06 Review of Systems ROS Statement: Those systems with pertinent positive or pertinent negative responses have been documented in the HPI. ROS Other: All systems not noted in ROS Statement are negative. Past Medical History Past Medical History: Hyperlipidemia, Hypertension Additional Past Medical History / Comment(s): irregular heartbeat, DDD History of Any Multi-Drug Resistant Organisms: None Reported Past Surgical History: No Surgical Hx Reported Past Psychological History: No Psychological Hx Reported Smoking Status: Current every day smoker Past Alcohol Use History: None Reported, Occasional Past Drug Use History: None Reported General Exam Limitations: no limitations General appearance: alert, in no apparent distress Head exam: Present: atraumatic, normocephalic, normal inspection Eye exam: Present: normal appearance, PERRL, EOMI. Absent: scleral icterus, conjunctival injection, periorbital swelling ENT exam: Present: normal exam, mucous membranes moist Neck exam: Present: normal inspection, full ROM. Absent: tenderness, meningismus, lymphadenopathy Respiratory exam: Present: normal lung sounds bilaterally. Absent: respiratory distress, wheezes, rales, rhonchi, stridor Cardiovascular Exam: Present: regular rate, normal rhythm, normal heart sounds. Absent: systolic murmur, diastolic murmur, rubs, gallop, clicks Neurological exam: Present: alert, oriented X3, CN II-XII intact Psychiatric exam: Present: normal affect, normal mood Skin exam: Present: warm, dry, intact, normal color. Absent: rash Course Vital Signs 12/02/24 12/02/24 12/02/24 12:04 12:15 13:55 Temperature 98.4 F 98.4 F Pulse Rate 71 62 Respiratory 16 20 Rate Blood Pressure 117/114 190/132 152/98 O2 Sat by Pulse 99 99 Oximetry Medical Decision Making - Medical Decision Making Was pt. sent in by a medical professional or institution (, PA, ONLINE MARKETING COORDINATOR, urgent care, hospital, or alf...) When possible be specific @ -No Did you speak to anyone other than the patient for history (EMS, parent, family, police, friend...)? What history was obtained from this source @ -No Did you review nursing and triage notes (agree or disagree)? Why? @ -I reviewed and agree with nursing and triage notes Were old charts reviewed (outside hosp., previous admission, EMS record, old EKG, old radiological studies, urgent care reports/EKG's, alf records)? Report findings @ -Reviewed cervical spine MRI October 10 which reveals large broad-based disc herniation extending superiorly of C4-5 level with moderate to severe anterior thecal sac compression cord contact and cord flattening present, AP spine canal stenosis Differential Diagnosis (chest pain, altered mental status, abdominal pain women, abdominal pain men, vaginal bleeding, weakness, fever, dyspnea, syncope, headache, dizziness, GI bleed, back pain, seizure, CVA, palpatations, mental health, musculoskeletal)? @ -Differential Back Pain: Strain, zoster, cauda equina syndrome, epidural abscess, vertebral osteomyelitis, discitis, fracture, subluxation, disc herniation, DJD, spinal stenosis, dissection, AAA, pancreatitis, peptic ulcer disease, pyelonephritis, kidney stone, this is not meant to be an all-inclusive list. EKG interpreted by me (3pts min.). @ -None X-rays interpreted by me (1pt min.). @ -None done CT interpreted by me (1pt min.). @ -None done U/S interpreted by me (1pt. min.). @ -None done What testing was considered but not performed or refused? (CT, X-rays, U/S, labs)? Why? @ -None What meds were considered but not given or refused? Why? @ -None Did you discuss the management of the patient with other professionals (professionals i.e. , PA, ONLINE MARKETING COORDINATOR, lab, RT, psych nurse, school social worker, onsite case manager, teacher, home school liaison officer, watch case polisher)? Give summary @ -No Was smoking cessation discussed for >3mins.? @ -No Was critical care preformed (if so, how long)? @ -No Were there social determinants of health that impacted care today? How? (Homelessness, low income, unemployed, alcoholism, drug addiction, transportation, low edu. Level, literacy, decrease access to med. care, half-way, rehab)? @ -No Was there de-escalation of care discussed even if they declined (Discuss DNR or withdrawal of care, Hospice)? DNR status @ -No What co-morbidities impacted this encounter? (DM, HTN, Smoking, COPD, CAD, Cancer, CVA, ARF, Chemo, Hep., AIDS, mental health diagnosis, sleep apnea, morbid obesity)? @ -None Was patient admitted / discharged? Hospital course, mention meds given and route, prescriptions, significant lab abnormalities, going to OR and other pertinent info. @ -Discharge. 39-year-old male presenting for acute on chronic neck pain. Denies recent injury or trauma. Patient had recent cervical spine MRI which revealed disc herniation of C4-5 level. Patient has follow-up appointment with orthopedics this Wednesday. Neurovascularly intact. Patient is hypertensive and states his blood pressure elevates when he is having neck pain flareups. Provided with appropriate analgesics. Upon reevaluation, patient reports his pain is currently at a 0 and feels stable for discharge. Blood pressure recheck 152/98. Advised to follow-up for orthopedic appointment on Wednesday and return with new or worsening symptoms. Case was discussed with my ED attending Dr. Sampson. Undiagnosed new problem with uncertain prognosis? @ -No Drug Therapy requiring intensive monitoring for toxicity (Heparin, Nitro, Insulin, Cardizem)? @ -No Were any procedures done? @ -No Diagnosis/symptom? @ -Acute on chronic neck pain Acute, or Chronic, or Acute on Chronic? @ -Acute on chronic Uncomplicated (without systemic symptoms) or Complicated (systemic symptoms)? @ -Uncomplicated Side effects of treatment? @ -No Exacerbation, Progression, or Severe Exacerbation? @ -No Poses a threat to life or bodily function? How? (Chest pain, USA, [place], pneumonia, PE, COPD, DKA, ARF, appy, cholecystitis, CVA, Diverticulitis, Homicidal, Suicidal, threat to staff... and all critical care pts) @ -No Disposition Clinical Impression: Neck pain Disposition: HOME SELF-CARE Condition: Stable Instructions (If sedation given, give patient instructions): Neck Pain (ED) Additional Instructions: Follow-up for upcoming orthopedic appointment. Take ibuprofen as discussed. Please return to the Emergency Department if symptoms worsen or any other concerns. Is patient prescribed a controlled substance at d/c from ED?: No Referrals: Poly Patel MD [Primary Care Provider] - 1-2 days Time of Disposition: 14:02
[2024-12-02 13:57] VITALS: BP 152/98; PULSE 62; RESP 20
== END 2024-12-02 13:35 | disposition home or self-care (01) ==
LOC: EC 11:55
DX: G89.29 Other chronic pain (principal); M54.2 Cervicalgia; F17.200 Nicotine dependence, unspecified, uncomplicated; Z91.09 Other allergy status, other than to drugs and biological substances
CPT/HCPCS: 99284; 96372 ×2; J2270; J1885